=== PATIENT | female | born 1955 | race Caucasian/White ===

== ENCOUNTER → 2021-06-27 | Day surgery (SDC) | payer MEDICARE, OTHER ==
[~2021-06-27] VITALS: Ht 170.2 cm; Wt 79.4 kg
[~2021-06-27] MED LIST: BONIVA 150MG T150 MG PO; CADUET 10 MG-21 EACH PO; GABAPENTIN800 MG PO; IMIPRAMINE HCL25 MG PO; MOBIC7.5 MG PO; MULTI FOR HER1 EACH PO; OS-CAL500 MG PO; TOVIAZ8 MG PO; ZANAFLEX4 M1 PO
[2021-06-27 11:07] LABS: HCT 51.3 % (37.0-47.0); HGB 16.5 g/dl (12.5-16.0); MCH 27.2 pg (25.0-31.0); MCHC 32.2 g/dL (32.0-36.0); MCV 84.7 fL (78.0-100.0); MPV 10.9 fL (6.0-9.5); RBC 6.06 M/uL (4.20-5.40); RDW 14.8 % (11.5-14.0); WBC 5.3 K/uL (4.0-10.5)
[2021-06-27 11:26] LABS: ALBUMIN 4.6 g/dL (3.4-5.0); BILIRUBIN - TOTAL 0.3 mg/dL (0.2-1.0); BUN/CREAT RATIO (CALC) 43.5 RATIO; CREATININE 0.62 mg/dL (0.51-0.95); GLOBULIN (CALCULATION) 3.9 g/dL; POTASSIUM 4.1 mmol/L (3.5-5.1); TOTAL PROTEIN 8.5 g/dL (6.4-8.2)
== END | disposition home or self-care (01) ==
LOC: FAS 08:58
PROVIDERS: Surgery
DX: K62.3 Rectal prolapse (principal); K62.89 Other specified diseases of anus and rectum; G82.20 Paraplegia, unspecified; I10 Essential (primary) hypertension; Z90.49 Acquired absence of other specified parts of digestive tract; Z90.710 Acquired absence of both cervix and uterus; Z96.9 Presence of functional implant, unspecified; Z88.5 Allergy status to narcotic agent; Z88.8 Allergy status to other drugs, medicaments and biological substances
CPT/HCPCS: 36415; 80053; J2250; J2704; J7120

== ENCOUNTER 2021-10-13 16:32 | Emergency (ER) | payer MEDICARE, OTHER | END 2021-10-13 17:19 | disposition home or self-care (01) | LOC: FER 16:32 | DX: L89.311 Pressure ulcer of right buttock, stage 1 (principal); I10 Essential (primary) hypertension; G82.20 Paraplegia, unspecified; Z88.5 Allergy status to narcotic agent | CPT/HCPCS: 99282 ==

== ENCOUNTER → 2021-12-24 | Day surgery (SDC) | payer MEDICARE, OTHER ==
[~2021-12-24] VITALS: Ht 170.2 cm; Wt 74.8 kg
== END | disposition home or self-care (01) ==
LOC: FAS 07:29
DX: L02.31 Cutaneous abscess of buttock (principal); L03.317 Cellulitis of buttock; M19.90 Unspecified osteoarthritis, unspecified site; I10 Essential (primary) hypertension
CPT/HCPCS: 87070; 87075; 87205; J2250; J2405; J2704; J3010; J3370; J7050; J7120